=== PATIENT | male | born 1940 | race Hispanic/Latino ===

== ENCOUNTER 2018-02-15 07:39 | Emergency (ER) | payer MEDICARE ==
[2018-02-15 08:06] LABS: BASOPHILS % (AUTO) 1.3 % (0.0-5.0); EOSINOPHILS % (AUTO) 5.4 % (0.0-8.0); HEMATOCRIT 42.3 % (42-54); LYMPHOCYTES % (AUTO) 28.6 % (21.0-51.0); MEAN CORPUSCULAR HEMOGLOBIN 33.6 pg (27.0-33.0); MEAN CORPUSCULAR HGB CONC 34.2 g/dL (32.0-36.0); MEAN CORPUSCULAR VOLUME 98.3 fL (79-99); MONOCYTES % (AUTO) 11.5 % (3.0-13.0); NEUTROPHILS % (AUTO) 53.2 % (40.0-77.0); PLATELET COUNT (AUTO) 132 K/uL (130-400); RED CELL DISTRIBUTION WIDTH 15.2 % (11.0-15.5); WHITE BLOOD COUNT (AUTO) 6.7 K/uL (4.8-10.8)
[2018-02-15] MEDS ORDERED: SODIUM CHLORIDE 0.9% 1000ML 1,000 ML IV ONE (08:09)
[2018-02-15 08:35] LABS: APPEARANCE,URINE Clear (CLEAR); BILIRUBIN,URINE Negative (NEGATIVE); COLOR,URINE Yellow (YELLOW); GLUCOSE, URINE (UA) Negative (NEGATIVE); KETONES,URINE Negative (NEGATIVE); LEUKOCYTE ESTERASE ,URINE Negative (NEGATIVE); NITRATE,URINE Negative (NEGATIVE); OCCULT BLOOD,URINE Negative (NEGATIVE); PH,URINE 5.5 (5.0-8.0); PROTEIN,URINE Negative (NEGATIVE)
[2018-02-15 08:55] LABS: POTASSIUM 3.3 mmol/L (3.5-5.1)
[2018-02-15 08:59] LABS: ALBUMIN 3.5 g/dL (3.5-5.0); BILIRUBIN,TOTAL 0.8 mg/dL (0.2-1.0); TOTAL PROTEIN, SERUM 7.5 g/dL (6.0-8.3)
== END 2018-02-15 10:10 | disposition home or self-care (01) ==
LOC: EDH 07:39
DX: E86.9 Volume depletion, unspecified (principal); R42 Dizziness and giddiness; J01.00 Acute maxillary sinusitis, unspecified; I10 Essential (primary) hypertension; Z98.890 Other specified postprocedural states
CPT/HCPCS: 36415; 70450; 80053; 81003; 84484; 85025; 93005; 96360; 96361; 99284; J7030

== ENCOUNTER 2020-04-16 08:11 | Emergency (ER) | payer MEDICARE | END 2020-04-16 09:56 | disposition home or self-care (01) | LOC: EDH 08:11 | DX: S56.405A Unspecified injury of extensor muscle, fascia and tendon of right ring finger at forearm level, initial encounter (principal); I10 Essential (primary) hypertension; W18.39XA Other fall on same level, initial encounter; Y93.89 Activity, other specified; Y92.89 Other specified places as the place of occurrence of the external cause; Y99.8 Other external cause status | CPT/HCPCS: 29130; 73130 ==

== ENCOUNTER → 2020-04-28 | Outpatient (CLI) | payer MEDICARE | END | disposition home or self-care (01) | LOC: SHCH 12:40 | PROVIDERS: ATTEND Internal Medicine Cardiovascular Disease | DX: I35.0 Nonrheumatic aortic (valve) stenosis (principal); R01.1 Cardiac murmur, unspecified; I35.8 Other nonrheumatic aortic valve disorders; I11.9 Hypertensive heart disease without heart failure; E78.5 Hyperlipidemia, unspecified; E66.9 Obesity, unspecified | CPT/HCPCS: 93306; 93356 ==

== ENCOUNTER → 2020-05-03 | Outpatient (CLI) | payer MEDICARE | END | disposition home or self-care (01) | LOC: SHCH 10:00 | PROVIDERS: ATTEND Internal Medicine Cardiovascular Disease | DX: I65.23 Occlusion and stenosis of bilateral carotid arteries (principal); R09.89 Other specified symptoms and signs involving the circulatory and respiratory systems | CPT/HCPCS: 93880 ==

== ENCOUNTER 2020-07-24 20:48 | Emergency (ER) | payer MEDICARE ==
[2020-07-24 21:31] LABS: BASOPHILS % (AUTO) 0.5 % (0.0-5.0); EOSINOPHILS % (AUTO) 1.1 % (0.0-8.0); HEMATOCRIT 38.7 % (42-54); LYMPHOCYTES % (AUTO) 7.7 % (21.0-51.0); MEAN CORPUSCULAR HEMOGLOBIN 33.4 pg (27.0-33.0); MEAN CORPUSCULAR HGB CONC 35.4 g/dL (32.0-36.0); MEAN CORPUSCULAR VOLUME 94.4 fL (79-99); MONOCYTES % (AUTO) 9.9 % (3.0-13.0); NEUTROPHILS % (AUTO) 80.5 % (40.0-77.0); PLATELET COUNT (AUTO) 139 K/uL (130-400); RED CELL DISTRIBUTION WIDTH 13.1 % (11.0-15.5); WHITE BLOOD COUNT (AUTO) 14.2 K/uL (4.8-10.8)
[2020-07-24 21:39] LABS: CREATININE 0.8 mg/dL (0.5-1.5); POTASSIUM 4.4 mmol/L (3.5-5.1)
[2020-07-24 21:44] LABS: ALBUMIN 3.5 g/dL (3.5-5.0); BILIRUBIN,TOTAL 1.4 mg/dL (0.2-1.0); TOTAL PROTEIN, SERUM 7.6 g/dL (6.0-8.3)
[2020-07-24] MEDS ORDERED: CLINDAMYCIN 600 MG/D5% WATER 50 ML IV ONE (22:27)
[2020-07-24] MEDS ORDERED: SODIUM CHLORIDE 0.9% 1000ML 1,000 ML IV ONE (22:28)
[2020-07-24] MEDS ORDERED: ACETAMINOPHEN-CODEINE 300/30MG TAB ONE ×2 (22:29→22:30)
[2020-07-27] MEDS ORDERED: LISI40TA9 PO (23:51)
[2020-07-27] MEDS ORDERED: FURO20TA6 PO (23:51)
[2020-07-27] MEDS ORDERED: VIT D3 PO (23:51)
[2020-07-27] MEDS ORDERED: DICL2100G TP (23:51)
[2020-07-27] MEDS ORDERED: ROSU10TA22 PO (23:51)
[2020-07-27] MEDS ORDERED: BRIM5DRO OP (23:51)
[2020-07-27] MEDS ORDERED: CYCL30DR OP (23:51)
[2020-07-27] MEDS ORDERED: AMLO2.5T4 PO (23:51)
[2020-07-27] MEDS ORDERED: CLON0.1T PO (23:51)
[2020-07-27] MEDS ORDERED: VIT B 12 PO (23:51)
[2020-07-27] MEDS ORDERED: VIT D PO (23:51)
[2020-07-27] MEDS ORDERED: LACT10SO9 PO (23:51)
[2020-07-27] MEDS ORDERED: FOLI0.8T22 PO (23:51)
[2020-07-27] MEDS ORDERED: FOLI0.8C PO (23:51)
[2020-07-27] MEDS ORDERED: BIMA12.5OS OD (23:51)
== END 2020-07-26 23:51 | disposition home or self-care (01) ==
LOC: EDH 20:48
DX: L03.116 Cellulitis of left lower limb (principal); S81.802D Unspecified open wound, left lower leg, subsequent encounter; E87.1 Hypo-osmolality and hyponatremia; I10 Essential (primary) hypertension; Z85.05 Personal history of malignant neoplasm of liver; X58.XXXD Exposure to other specified factors, subsequent encounter
CPT/HCPCS: 36415; 71045; 73562; 73590; 80053; 83605; 84550; 85025; 86140; 87040 ×2; 87077; 87186; 96365; 99284; J3490; J7030

== ENCOUNTER → 2020-09-21 | Outpatient (CLI) | payer MEDICARE ==
[~2020-09-21] MED LIST: AMLO2.5T4 PO; BIMA12.5OS OD; BRIM5DRO OP; CLON0.1T PO; CYCL30DR OP; DICL2100G TP; FOLI0.8C PO; FOLI0.8T22 PO; FURO20TA6 PO; LACT10SO9 PO; LISI40TA9 PO; ROSU10TA22 PO; VIT B 12 PO; VIT D PO; VIT D3 PO
== END | disposition home or self-care (01) ==
LOC: RAH 09:59
PROVIDERS: ATTEND Internal Medicine
DX: S90.129A Contusion of unspecified lesser toe(s) without damage to nail, initial encounter (principal); S90.31XA Contusion of right foot, initial encounter; M77.31 Calcaneal spur, right foot; X58.XXXA Exposure to other specified factors, initial encounter; Y93.89 Activity, other specified; Y92.89 Other specified places as the place of occurrence of the external cause
CPT/HCPCS: 73620

== ENCOUNTER → 2021-06-29 | Outpatient (CLI) | payer MEDICARE | END | disposition home or self-care (01) | LOC: SHCH 09:25 | PROVIDERS: ATTEND Internal Medicine Cardiovascular Disease | DX: I08.0 Rheumatic disorders of both mitral and aortic valves (principal); I11.9 Hypertensive heart disease without heart failure; E66.9 Obesity, unspecified | CPT/HCPCS: 93306 ==

== ENCOUNTER → 2021-07-20 | Outpatient (CLI) | payer MEDICARE | END | disposition home or self-care (01) | LOC: SHCH 14:10 | PROVIDERS: ATTEND Internal Medicine Cardiovascular Disease | DX: I65.23 Occlusion and stenosis of bilateral carotid arteries (principal); R09.89 Other specified symptoms and signs involving the circulatory and respiratory systems | CPT/HCPCS: 93880 ==

== ENCOUNTER 2021-08-02 20:29 | Emergency (ER) | payer MEDICARE ==
[~2021-08-02] VITALS: Ht 162.6 cm; Wt 80.3 kg
[2021-08-02] MEDS ORDERED: 0.9%NACL 1000ML 1,000 ML IV ONE ×2 (21:00)
[2021-08-02 21:28] LABS: BASOPHILS % (AUTO) 0.7 % (0.0-5.0); EOSINOPHILS % (AUTO) 1.5 % (0.0-8.0); HEMATOCRIT 44.2 % (42-54); LYMPHOCYTES % (AUTO) 24.8 % (21.0-51.0); MEAN CORPUSCULAR HGB CONC 35.5 g/dL (32.0-36.0); MEAN CORPUSCULAR VOLUME 90.2 fL (79-99); MONOCYTES % (AUTO) 11.6 % (3.0-13.0); PLATELET COUNT (AUTO) 102 K/uL (130-400); RED CELL DISTRIBUTION WIDTH 13.5 % (11.0-15.5); WHITE BLOOD COUNT (AUTO) 8.5 K/uL (4.8-10.8)
[2021-08-02 21:43] LABS: INR 1.15 (0.85-1.15); PROTHROMBIN TIME 12.4 SEC (9.6-11.6)
[2021-08-02 21:51] LABS: CREATININE 0.9 mg/dL (0.5-1.5); POTASSIUM 4.3 mmol/L (3.5-5.1)
[2021-08-02 21:59] LABS: ALBUMIN 3.2 g/dL (3.5-5.0); BILIRUBIN,TOTAL 2.1 mg/dL (0.2-1.0); TOTAL PROTEIN, SERUM 7.1 g/dL (6.0-8.3)
[2021-08-02 22:44] VITALS: BP 147/77
== END 2021-08-02 22:51 | disposition home or self-care (01) ==
LOC: EDH 20:29
DX: E86.0 Dehydration (principal); E72.20 Disorder of urea cycle metabolism, unspecified; E78.00 Pure hypercholesterolemia, unspecified; I10 Essential (primary) hypertension; Z79.1 Long term (current) use of non-steroidal anti-inflammatories (NSAID); Z79.899 Other long term (current) drug therapy
CPT/HCPCS: 36415; 71045; 80053; 82140; 83605; 84484; 85025; 85610; 85730; 87040 ×2; 93005; 96360; 99285; J7030

== ENCOUNTER 2021-10-02 22:21 | Inpatient (IN) | payer MEDICARE ==
[~2021-10-02] VITALS: Ht 162.6 cm; Wt 77.6 kg
[2021-10-02] MEDS ORDERED: NITROGLYCERIN 1GM OINT 1 INCH/1GM TD ONE (23:00)
[2021-10-02 23:17] LABS: BASOPHILS % (AUTO) 0.7 % (0.0-5.0); EOSINOPHILS % (AUTO) 0.9 % (0.0-8.0); HEMATOCRIT 47.1 % (42-54); LYMPHOCYTES % (AUTO) 29.5 % (21.0-51.0); MEAN CORPUSCULAR HEMOGLOBIN 32.1 pg (27.0-33.0); MEAN CORPUSCULAR HGB CONC 35.5 g/dL (32.0-36.0); MEAN CORPUSCULAR VOLUME 90.6 fL (79-99); MONOCYTES % (AUTO) 7.1 % (3.0-13.0); NEUTROPHILS % (AUTO) 61.4 % (40.0-77.0); PLATELET COUNT (AUTO) 105 K/uL (130-400); WHITE BLOOD COUNT (AUTO) 7.6 K/uL (4.8-10.8)
[2021-10-02 23:36] LABS: B-TYPE NATRIURETIC PEPTIDE 336 pg/mL (0-100)
[2021-10-02 23:46] LABS: ALBUMIN 2.8 g/dL (3.5-5.0); CREATININE 1.3 mg/dL (0.5-1.5); MAGNESIUM 1.8 mg/dL (1.80-2.40); TOTAL PROTEIN, SERUM 7.2 g/dL (6.0-8.3)
[2021-10-03] MEDS ORDERED: DILTIAZEM 125 MG/25 ML INJ IV ONE (01:46)
[2021-10-03] MEDS ORDERED: POTASSIUM BICARB/CIT AC 25 MEQ TABLET.EFF PO ONE (02:00)
[2021-10-03] MEDS ORDERED: DILTIAZEM 125 MG/25 ML INJ 125 MG in 0.9%NACL 100ML 100 ML IV SCH (02:00)
[2021-10-03 02:28] LABS: EOSINOPHILS % (AUTO) 0.8 % (0.0-8.0); HEMATOCRIT 48.4 % (42-54); LYMPHOCYTES % (AUTO) 31.3 % (21.0-51.0); MEAN CORPUSCULAR HEMOGLOBIN 32.9 pg (27.0-33.0); MEAN CORPUSCULAR HGB CONC 36.2 g/dL (32.0-36.0); MONOCYTES % (AUTO) 6.5 % (3.0-13.0); NEUTROPHILS % (AUTO) 60.1 % (40.0-77.0); PLATELET COUNT (AUTO) 80 K/uL (130-400); RED BLOOD CELL COUNT(AUTO) 5.32 MIL/uL (4.50-6.20); RED CELL DISTRIBUTION WIDTH 15.1 % (11.0-15.5); WHITE BLOOD COUNT (AUTO) 7.8 K/uL (4.8-10.8)
[2021-10-03 03:39] LABS: ALBUMIN 2.6 g/dL (3.5-5.0); CREATININE 1.2 mg/dL (0.5-1.5); POTASSIUM 3.1 mmol/L (3.5-5.1); TOTAL PROTEIN, SERUM 6.8 g/dL (6.0-8.3)
[2021-10-03] MEDS ORDERED: SUNI50CA PO (05:17)
[2021-10-03] MEDS ORDERED: FLUT16H NS (05:17)
[2021-10-03] MEDS ORDERED: OFLO5DRO OD (05:17)
[2021-10-03] MEDS ORDERED: VIT-7 PO (05:17)
[2021-10-03] MEDS ORDERED: FEXO-263 PO (05:17)
[2021-10-03] MEDS ORDERED: LIDOCAINE HCL-MPF 1% 2ML VIAL IV PRN ×2 (07:00)
[2021-10-03] MEDS ORDERED: POTASSIUM CHLORIDE 10% ELIXIR 20 MEQ/15 ML UDCUP PO PRN (07:00)
[2021-10-03] MEDS ORDERED: POTASSIUM CHLORIDE 20MEQ/100ML 100 ML IV PRN ×2 (07:00)
[2021-10-03] MEDS ORDERED: LISI40TA9 PO (07:05)
[2021-10-03] MEDS ORDERED: CYCL30DR OU (07:06)
[2021-10-03] MEDS ORDERED: METO25TA6 PO (07:08)
[2021-10-03] MEDS ORDERED: BRIM5DRO OU (07:08)
[2021-10-03] MEDS: CEFEPIME HCL 2 GM VIAL IVP SCH ×3 (09:02→23:16)
[2021-10-03] MEDS: METOPROLOL TARTRATE 25 MG TAB PO SCH (09:34)
[2021-10-03] MEDS: RIFAXIMIN 550 MG TABLET PO SCH ×2 (09:34→21:37)
[2021-10-03] MEDS: LACTULOSE 20 GM/30 ML UDCUP PR SCH ×2 (09:34→21:37)
[2021-10-03 10:22] LABS: APPEARANCE,URINE Clear (CLEAR); BILIRUBIN,URINE Negative (NEGATIVE); COLOR,URINE Dark Yellow (YELLOW); GLUCOSE, URINE (UA) Negative (NEGATIVE); KETONES,URINE Negative (NEGATIVE); LEUKOCYTE ESTERASE ,URINE Negative (NEGATIVE); NITRATE,URINE Negative (NEGATIVE); OCCULT BLOOD,URINE Small (NEGATIVE); PH,URINE 6.5 (5.0-8.0); PROTEIN,URINE 300 mg/dL (NEGATIVE)
[2021-10-03] MEDS: KCL 20 MEQ ERTAB PO PRN ×3 (10:33→15:59)
[2021-10-03 10:41] LABS: BACTERIA,URINE Rare /HPF (None Seen); RBC,URINE 0-1 /HPF (0-1); SQUAMOUS EPITHELIAL CELL,UR Rare /HPF (0-2); WBC,URINE 0-1 /HPF (0-1)
[2021-10-03] MEDS ORDERED: XALA2.5OS OU (10:53)
[2021-10-03] MEDS ORDERED: LACT10SO9 PO (10:55)
[2021-10-03 12:52] LABS: INR 1.1 (0.85-1.15); PROTHROMBIN TIME 11.9 SEC (9.6-11.6)
[2021-10-03 12:54] LABS: PARTIAL THROMBOPLASTIN TIME 33.6 SEC (26.3-35.5)
[2021-10-03] MEDS: METRONIDAZOLE 500MG/100ML BAG 100 ML IVPB SCH ×2 (13:46→21:37)
[2021-10-03] MEDS: NYSTATIN 100000 UNIT/ML 5ML UDCUP PO SCH ×3 (14:09→21:37)
[2021-10-03] MEDS ORDERED: IOHEXOL-350 50ML VIAL IV ONE (15:39)
[2021-10-03] MEDS ORDERED: VANCOMYCIN PROTOCOL PER PHARMACY IV SCH (16:30)
[2021-10-03] MEDS ORDERED: VANCOMYCIN 1G VIAL IVPB ONE (16:30)
[2021-10-03] MEDS ORDERED: VANCOMYCIN 1.5 GM/250 ML BAG 250 ML IV ONE (17:00)
[2021-10-03] MEDS ORDERED: LATANOPROST 2.5 ML DROPS OU SCH (21:30)
[2021-10-03 22:00] VITALS: BP 157/96
[2021-10-03 23:00] VITALS: BP 157/96
[2021-10-04 03:15] VITALS: BP 151/82
[2021-10-04 04:51] LABS: HEMATOCRIT 44.8 % (42-54); MEAN CORPUSCULAR HEMOGLOBIN 32.7 pg (27.0-33.0); MEAN CORPUSCULAR HGB CONC 35.7 g/dL (32.0-36.0); MEAN CORPUSCULAR VOLUME 91.4 fL (79-99); PLATELET COUNT (AUTO) 63 K/uL (130-400); WHITE BLOOD COUNT (AUTO) 7.9 K/uL (4.8-10.8)
[2021-10-04 05:07] LABS: ALBUMIN 2.2 g/dL (3.5-5.0)
[2021-10-04] MEDS: METRONIDAZOLE 500MG/100ML BAG 100 ML IVPB SCH ×3 (05:20→22:53)
[2021-10-04 05:23] LABS: PLATELET MORPHOLOGY COMMENT LARGE PLTS PRESENT
[2021-10-04 07:00] VITALS: BP 167/78
[2021-10-04] MEDS ORDERED: RENAL DOSE IV SCH (08:30)
[2021-10-04] MEDS: CEFEPIME HCL 2 GM VIAL IVP SCH ×3 (08:47→22:53)
[2021-10-04] MEDS: BRIMONIDINE TARTRATE OU SCH ×2 (08:47→21:00)
[2021-10-04] MEDS: LACTULOSE 20 GM/30 ML UDCUP PO SCH ×4 (08:47→20:48)
[2021-10-04] MEDS: TIMOLOL OU SCH ×2 (08:47→21:00)
[2021-10-04] MEDS: METOPROLOL TARTRATE 25 MG TAB PO SCH (08:48)
[2021-10-04] MEDS: AMLODIPINE 2.5 MG TAB PO SCH (08:48)
[2021-10-04] MEDS: PANTOPRAZOLE 40 MG TAB DR PO SCH (08:48)
[2021-10-04] MEDS: Vitamin B Complex/Vit C/Folic Acid PO SCH (08:48)
[2021-10-04] MEDS: RIFAXIMIN 550 MG TABLET PO SCH ×2 (08:48→20:48)
[2021-10-04] MEDS: NYSTATIN 100000 UNIT/ML 5ML UDCUP PO SCH ×4 (08:49→20:48)
[2021-10-04] MEDS ORDERED: COMPOUND PO MISCELLANEOUS 1 EACH MISC MISC PRN (09:00)
[2021-10-04] MEDS ORDERED: [UNRECOGNIZED DRUG - OTHER] OU SCH (09:00)
[2021-10-04] MEDS ORDERED: TIMOLOL OU SCH (09:00)
[2021-10-04] MEDS ORDERED: BRIMONIDINE TARTRATE OU SCH (09:00)
[2021-10-04] MEDS ORDERED: MAG/AL/SIMETH 30 ML+LIDO2% VISC+DIPHEN 75MG 30ML PO PRN ×3 (09:00)
[2021-10-04 11:00] VITALS: BP 135/86
[2021-10-04] MEDS: DILTIAZEM 60MG TAB PO SCH (11:46)
[2021-10-04] MEDS ORDERED: VANCOMYCIN 1G/250ML KIT 250 ML IV SCH (15:00)
[2021-10-04 16:00] VITALS: BP 157/88
[2021-10-04] MEDS ORDERED: [UNRECOGNIZED DRUG - MIXTURE] PO PRN ×4 (18:30)
[2021-10-04 20:00] VITALS: BP 159/92
[2021-10-04] MEDS: LISINOPRIL 40 MG TABLET PO SCH (20:48)
[2021-10-04] MEDS: LATANOPROST 2.5 ML DROPS OU SCH (20:49)
[2021-10-04] MEDS ORDERED: LATANOPROST 2.5 ML DROPS OU SCH (21:00)
[2021-10-05] VITALS (7 sets, daily range): BP systolic 118–160; BP diastolic 65–93
[2021-10-05 04:13] LABS: BASOPHILS % (AUTO) 0.9 % (0.0-5.0); EOSINOPHILS % (AUTO) 2.6 % (0.0-8.0); HEMATOCRIT 47.7 % (42-54); LYMPHOCYTES % (AUTO) 26.2 % (21.0-51.0); MEAN CORPUSCULAR HEMOGLOBIN 32.4 pg (27.0-33.0); MEAN CORPUSCULAR HGB CONC 35.6 g/dL (32.0-36.0); MEAN CORPUSCULAR VOLUME 90.9 fL (79-99); MONOCYTES % (AUTO) 7.4 % (3.0-13.0); NEUTROPHILS % (AUTO) 62.5 % (40.0-77.0); PLATELET COUNT (AUTO) 66 K/uL (130-400); RED BLOOD CELL COUNT(AUTO) 5.25 MIL/uL (4.50-6.20); RED CELL DISTRIBUTION WIDTH 15.2 % (11.0-15.5)
[2021-10-05] MEDS: METRONIDAZOLE 500MG/100ML BAG 100 ML IVPB SCH ×3 (04:40→20:22)
[2021-10-05 04:55] LABS: ALBUMIN 2.2 g/dL (3.5-5.0); CREATININE 1.1 mg/dL (0.5-1.5); POTASSIUM 3.7 mmol/L (3.5-5.1); TOTAL PROTEIN, SERUM 6.1 g/dL (6.0-8.3)
[2021-10-05] MEDS: LACTULOSE 20 GM/30 ML UDCUP PO SCH ×4 (09:37→20:16)
[2021-10-05] MEDS: METOPROLOL TARTRATE 25 MG TAB PO SCH (09:38)
[2021-10-05] MEDS: PANTOPRAZOLE 40 MG TAB DR PO SCH (09:38)
[2021-10-05] MEDS: NYSTATIN 100000 UNIT/ML 5ML UDCUP PO SCH ×4 (09:38→20:16)
[2021-10-05] MEDS: AMLODIPINE 2.5 MG TAB PO SCH (09:38)
[2021-10-05] MEDS: RIFAXIMIN 550 MG TABLET PO SCH ×2 (09:38→20:21)
[2021-10-05] MEDS: Vitamin B Complex/Vit C/Folic Acid PO SCH (09:38)
[2021-10-05] MEDS: DILTIAZEM 60MG TAB PO SCH (09:39)
[2021-10-05] MEDS: TIMOLOL OU SCH ×2 (09:46→20:19)
[2021-10-05] MEDS: BRIMONIDINE TARTRATE OU SCH ×2 (09:46→20:19)
[2021-10-05] MEDS: CEFEPIME HCL 2 GM VIAL IVP SCH ×3 (09:56→23:56)
[2021-10-05] MEDS ORDERED: VANCOMYCIN 1.5 GM/250 ML BAG 250 ML IV ONE (16:00)
[2021-10-05] MEDS ORDERED: MAGNESIUM 2GM PREMIX 50ML 50 ML IV PRN (18:30)
[2021-10-05] MEDS: LATANOPROST 2.5 ML DROPS OU SCH (20:14)
[2021-10-05] MEDS: KCL 20 MEQ ERTAB PO PRN (20:21)
[2021-10-05] MEDS: LISINOPRIL 40 MG TABLET PO SCH (20:21)
[2021-10-06 04:00] VITALS: BP 141/87
[2021-10-06] MEDS ORDERED: 0.9% NACL 250ML 250 ML ONE (04:50)
[2021-10-06 04:54] LABS: BASOPHILS % (AUTO) 1.3 % (0.0-5.0); EOSINOPHILS % (AUTO) 3.5 % (0.0-8.0); HEMATOCRIT 48.1 % (42-54); LYMPHOCYTES % (AUTO) 28.2 % (21.0-51.0); MEAN CORPUSCULAR HEMOGLOBIN 32.3 pg (27.0-33.0); MEAN CORPUSCULAR HGB CONC 34.7 g/dL (32.0-36.0); MONOCYTES % (AUTO) 8.2 % (3.0-13.0); NEUTROPHILS % (AUTO) 58.5 % (40.0-77.0); PLATELET COUNT (AUTO) 67 K/uL (130-400); RED BLOOD CELL COUNT(AUTO) 5.17 MIL/uL (4.50-6.20); RED CELL DISTRIBUTION WIDTH 15.6 % (11.0-15.5); WHITE BLOOD COUNT (AUTO) 6.9 K/uL (4.8-10.8)
[2021-10-06] MEDS: VANCOMYCIN 1G/250ML KIT 250 ML IV SCH ×2 (05:02→16:36)
[2021-10-06] MEDS: METRONIDAZOLE 500MG/100ML BAG 100 ML IVPB SCH ×3 (05:08→21:13)
[2021-10-06 05:09] LABS: ALBUMIN 2.3 g/dL (3.5-5.0); CREATININE 1.2 mg/dL (0.5-1.5); POTASSIUM 4.8 mmol/L (3.5-5.1); TOTAL PROTEIN, SERUM 6.1 g/dL (6.0-8.3)
[2021-10-06 08:00] VITALS: BP 160/96
[2021-10-06] MEDS: PANTOPRAZOLE 40 MG TAB DR PO SCH (09:29)
[2021-10-06] MEDS: DILTIAZEM 60MG TAB PO SCH (09:29)
[2021-10-06] MEDS: RIFAXIMIN 550 MG TABLET PO SCH ×2 (09:30→21:13)
[2021-10-06] MEDS: METOPROLOL TARTRATE 25 MG TAB PO SCH (09:30)
[2021-10-06] MEDS: AMLODIPINE 2.5 MG TAB PO SCH (09:30)
[2021-10-06] MEDS: NYSTATIN 100000 UNIT/ML 5ML UDCUP PO SCH ×4 (09:30→21:13)
[2021-10-06] MEDS: Vitamin B Complex/Vit C/Folic Acid PO SCH (09:30)
[2021-10-06] MEDS: LACTULOSE 20 GM/30 ML UDCUP PO SCH ×4 (09:30→21:13)
[2021-10-06] MEDS: TIMOLOL OU SCH ×2 (09:31→21:11)
[2021-10-06] MEDS: BRIMONIDINE TARTRATE OU SCH ×2 (09:31→21:11)
[2021-10-06] MEDS ORDERED: OFLO5DRO AS (10:47)
[2021-10-06] MEDS: CEFEPIME HCL 2 GM VIAL IVP SCH ×2 (11:02→16:36)
[2021-10-06 11:44] VITALS: BP 147/72
[2021-10-06 16:00] VITALS: BP 153/80
[2021-10-06 19:13] VITALS: BP 155/92
[2021-10-06] MEDS: LATANOPROST 2.5 ML DROPS OU SCH (21:10)
[2021-10-06] MEDS: LISINOPRIL 40 MG TABLET PO SCH (21:13)
[2021-10-06 23:27] VITALS: BP 157/84
[2021-10-07] VITALS (7 sets, daily range): BP systolic 126–168; BP diastolic 68–93
[2021-10-07] MEDS: CEFEPIME HCL 2 GM VIAL IVP SCH ×3 (00:13→16:22)
[2021-10-07] MEDS ORDERED: 0.9% NACL 250ML 250 ML ONE (03:24)
[2021-10-07] MEDS: VANCOMYCIN 1G/250ML KIT 250 ML IV SCH ×2 (03:31→16:21)
[2021-10-07 03:48] LABS: EOSINOPHILS % (AUTO) 4.5 % (0.0-8.0); HEMATOCRIT 45.6 % (42-54); LYMPHOCYTES % (AUTO) 26.1 % (21.0-51.0); MEAN CORPUSCULAR HEMOGLOBIN 32.9 pg (27.0-33.0); MEAN CORPUSCULAR HGB CONC 34.6 g/dL (32.0-36.0); MONOCYTES % (AUTO) 8.3 % (3.0-13.0); NEUTROPHILS % (AUTO) 59.8 % (40.0-77.0); PLATELET COUNT (AUTO) 46 K/uL (130-400); RED CELL DISTRIBUTION WIDTH 15.9 % (11.0-15.5)
[2021-10-07] MEDS: METRONIDAZOLE 500MG/100ML BAG 100 ML IVPB SCH ×3 (05:16→21:35)
[2021-10-07 05:35] LABS: ALBUMIN 2.1 g/dL (3.5-5.0); POTASSIUM 3.8 mmol/L (3.5-5.1); TOTAL PROTEIN, SERUM 5.8 g/dL (6.0-8.3)
[2021-10-07] MEDS: AMLODIPINE 2.5 MG TAB PO SCH (07:52)
[2021-10-07] MEDS: LACTULOSE 20 GM/30 ML UDCUP PO SCH ×4 (07:52→21:35)
[2021-10-07] MEDS: RIFAXIMIN 550 MG TABLET PO SCH ×2 (07:52→21:35)
[2021-10-07] MEDS: METOPROLOL TARTRATE 25 MG TAB PO SCH (07:52)
[2021-10-07] MEDS: PANTOPRAZOLE 40 MG TAB DR PO SCH (07:52)
[2021-10-07] MEDS: Vitamin B Complex/Vit C/Folic Acid PO SCH (07:52)
[2021-10-07] MEDS: DILTIAZEM 60MG TAB PO SCH (07:53)
[2021-10-07] MEDS: NYSTATIN 100000 UNIT/ML 5ML UDCUP PO SCH ×4 (07:58→21:35)
[2021-10-07] MEDS: BRIMONIDINE TARTRATE OU SCH ×2 (07:58→21:33)
[2021-10-07] MEDS: TIMOLOL OU SCH ×2 (07:58→21:33)
[2021-10-07] MEDS: LATANOPROST 2.5 ML DROPS OU SCH (21:33)
[2021-10-07] MEDS: LISINOPRIL 40 MG TABLET PO SCH (21:35)
[2021-10-08] MEDS: CEFEPIME HCL 2 GM VIAL IVP SCH ×2 (00:19→08:05)
[2021-10-08 03:00] VITALS: BP 133/79
[2021-10-08] MEDS ORDERED: 0.9% NACL 500ML IV.SOLN 500 ML IV ONE (03:03)
[2021-10-08] MEDS: VANCOMYCIN 1G/250ML KIT 250 ML IV SCH ×2 (03:17→17:22)
[2021-10-08] MEDS: METRONIDAZOLE 500MG/100ML BAG 100 ML IVPB SCH ×2 (05:24→13:39)
[2021-10-08 07:00] VITALS: BP 140/98
[2021-10-08] MEDS: NYSTATIN 100000 UNIT/ML 5ML UDCUP PO SCH ×3 (08:05→17:22)
[2021-10-08] MEDS: AMLODIPINE 2.5 MG TAB PO SCH (08:06)
[2021-10-08] MEDS: LACTULOSE 20 GM/30 ML UDCUP PO SCH ×3 (08:06→17:19)
[2021-10-08] MEDS: RIFAXIMIN 550 MG TABLET PO SCH (08:06)
[2021-10-08] MEDS: PANTOPRAZOLE 40 MG TAB DR PO SCH (08:06)
[2021-10-08] MEDS: DILTIAZEM 60MG TAB PO SCH (08:06)
[2021-10-08] MEDS: TIMOLOL OU SCH (08:07)
[2021-10-08] MEDS: Vitamin B Complex/Vit C/Folic Acid PO SCH (08:07)
[2021-10-08] MEDS: METOPROLOL TARTRATE 25 MG TAB PO SCH (08:07)
[2021-10-08] MEDS: BRIMONIDINE TARTRATE OU SCH (08:07)
[2021-10-08 11:00] VITALS: BP 112/66
[2021-10-08 16:00] VITALS: BP 149/87
== END 2021-10-08 19:05 | DRG 308 ==
LOC: EDH 22:21 → EDHIP 10-03 02:01 → 2DH 10-03 23:03
PROVIDERS: ADMIT Internal Medicine; ATTEND Internal Medicine
DX: I48.19 Other persistent atrial fibrillation (principal); E43 Unspecified severe protein-calorie malnutrition; C78.01 Secondary malignant neoplasm of right lung; C78.02 Secondary malignant neoplasm of left lung; D84.9 Immunodeficiency, unspecified; C78.7 Secondary malignant neoplasm of liver and intrahepatic bile duct; C64.9 Malignant neoplasm of unspecified kidney, except renal pelvis; I48.92 Unspecified atrial flutter; K74.60 Unspecified cirrhosis of liver; D69.6 Thrombocytopenia, unspecified; E11.22 Type 2 diabetes mellitus with diabetic chronic kidney disease; E78.00 Pure hypercholesterolemia, unspecified; E87.6 Hypokalemia; F10.10 Alcohol abuse, uncomplicated; I12.9 Hypertensive chronic kidney disease with stage 1 through stage 4 chronic kidney disease, or unspecified chronic kidney disease; I35.1 Nonrheumatic aortic (valve) insufficiency; T45.1X5A Adverse effect of antineoplastic and immunosuppressive drugs, initial encounter; K72.90 Hepatic failure, unspecified without coma; N18.9 Chronic kidney disease, unspecified; Z87.891 Personal history of nicotine dependence; Z68.29 Body mass index [BMI] 29.0-29.9, adult
CPT/HCPCS: 36415; 71045; 71270; 80053; 80202; 81001; 82140; 82270; 83605; 83735; 83880; 84484; 85025; 85027; 85610; 85730; 87040; 87507; 93005; 93306; 93356; 93970; 94760; 97039; 99291; G0378; J0692; J3370; J3475; J3490; J7040; J7050; Q9967